=== PATIENT | female | born 1990 | race Caucasian/White ===

== ENCOUNTER 2017-04-12 15:30 | Inpatient (IN) | payer OTHER ==
[2017-04-12 16:29] LABS: Hematocrit 42 % (35-47); Hemoglobin 14.2 g/dl (12.0-16.0); Mean Corpuscular HGB Conc 34 g/dl (31-36); Mean Corpuscular Hemoglobin 30 pg (27-31); Mean Corpuscular Volume 89 fL (80-97); Mean Platelet Volume 10 um3 (7.4-10.4); Red Blood Count 4.72 10^6/ul (4.0-5.4); Red Cell Distribution Width 13 % (10.5-15); White Blood Count 9.8 10^3/ul (3.5-10.8)
[2017-04-12 16:39] LABS: Urine Bacteria Absent (Absent); Urine Bilirubin Negative (Negative); Urine Glucose Negative (Negative); Urine Nitrite Negative (Negative)
[2017-04-12 16:50] LABS: ALT 10 U/L (7-52); AST 15 U/L (13-39); Albumin 4.3 g/dL (3.2-5.2); Alkaline Phosphatase 51 U/L (34-104); Anion Gap 11 mmol/L (2-11); BUN/Creatinine Ratio 17.9 (8-20); Blood Urea Nitrogen 12 mg/dL (6-24); CO2 Carbon Dioxide 23 mmol/L (22-32); Calcium 9.2 mg/dL (8.6-10.3); Chloride 103 mmol/L (101-111); EGFR African American 137.9 (>60); EGFR Non-African American 107.2 (>60); Globulin 3.2 g/dL (2-4); Glucose 86 mg/dL (70-100); Potassium 3.8 mmol/L (3.5-5.0); Sodium 137 mmol/L (133-145); Total Protein 7.5 g/dL (6.4-8.9)
[2017-04-12 16:59] LABS: Benzodiazepine Urine Screen None Detected (None Detect)
[2017-04-12 17:10] LABS: Acetaminophen < 15 mcg/mL; Alcohol < 10 mg/dL (<10); Salicylate < 2.50 mg/dL (<30)
[2017-04-12 17:20] LABS: TSH (Thyroid Stimulating Horm) 3.84 mcIU/mL (0.34-5.60)
[2017-04-12] MEDS ORDERED: Acetaminophen TAB* 325 MG PO ONE (19:19)
[2017-04-12] MEDS ORDERED: Nicotine Inhaler* 10 MG AMP INH PRN (22:58)
[2017-04-12] MEDS ORDERED: Acetaminophen TAB* 325 MG PO PRN (23:00)
[2017-04-13] MEDS: FERROUS FUMARATE PO SCH ×2 (00:21→21:27)
[2017-04-13] MEDS: NORETHINDRONE ACETATE PO SCH ×2 (00:21→21:27)
[2017-04-13] MEDS: ETHINYL ESTRADIOL PO SCH ×2 (00:21→21:27)
[2017-04-13] MEDS: Mometasone 220 MCG MDI INH SCH ×2 (00:23→21:27)
[2017-04-13] MEDS: busPIRone TAB* 5 MG PO SCH (08:37)
[2017-04-13] MEDS: Citalopram TAB* 40 MG PO SCH (08:37)
[2017-04-13] MEDS ORDERED: Albuterol HFA INHALER* 8 gm MDI INH PRN (09:15)
[2017-04-13] MEDS: CEVIMELINE 30 MG PO SCH (12:51)
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
[2017-04-13] MEDS: PTO: LevoCETirizine TAB (NF) 5 MG TAB PO SCH (21:27)
[2017-04-14] MEDS: Citalopram TAB* 40 MG PO SCH (08:28)
[2017-04-14] MEDS: busPIRone TAB* 5 MG PO SCH (08:29)
[2017-04-14] MEDS: CEVIMELINE 30 MG PO SCH (08:29)
--- NOTE | 2017-04-14 08:53 | PN ---
Subjective - Subjective Service Type: 56003 Hosp care 15 min low complexity Subjective: Claudio reports some immediate relief by removing herself from her stressors. She notes milder anxiety and emotional pain. She is having a good unit experience, with support from/to peers and interest in clinical programming. We discussed her MMPI result and profile. Borderline Personality features resonated strongly with her and she appreciated having a better way of understanding her struggles, symptoms, ups and downs, and prognosis. She was encouraged by it, eager to engage in DBT work here and ongoing self care and therapy. Objective - Appearance Appearance: Thin Framed Hygiene: Normal Grooming: Well Kept - Behavior Psychomotor Activities: Normal - Attitude and Relatedness Attitude and Relatedness: Cooperative Eye Contact: Good - Speech Quality: Unpressured Latencies: Normal Quantity: Appropriate - Mood Patient's Decription of Mood: "Okay" - Affect Observed Affect: Non-labile Affect Consistent with: Dysphoria - mild - Thought Process Patient's Thought Process: Coherent Thought Content: No Passive Wish, No Suicidal Planning, No Homicidal Ideation, No Paranoid Ideation - Sensorium Experiencing Hallucinations: No, Sensorium is Clear - Level of Consciousness Level of Consciousness: Alert - Impulse Control Impulse Control: Intact - Insight and Judgement Insight and Judgement: Good Assessment - Assessment Merits Inpatient Hospitalization: For Stabilization, To Initiate Treatment, For Ongoing Evaluation, Consolidate Improvements, For Discharge Planning Inpatient DSM-IV Dx: 1. Depressive disorder, not otherwise specified. 2. Anxiety disorder, not otherwise specified. 3. Rule out posttraumatic stress disorder. 4. Rule out borderline traits or personality disorder. Clinical Impression: 26-year-old female with a history of chronic depressive symptoms, recent suicide attempt, and periodic self- injury, along with anxiety and outpatient psychiatric care. She was admitted due to concern over a recent suicidal behavior and unmanageable, impairing depressive symptoms. This was in the context of highly conflicted relationship with her intermittent partner. Stabilizing here. Claudio is safe on checks, adherent with routines, engaged clinically, and free of self harm behavior or active suicidal thoughts. Clinically she is having some spontaneous improvements, with milder mood and anxiety symptoms, improved coping, reduced distress. Evaluation includes psychological testing psychological testing with the MMPI ( See Dr. Teixeira's note for details). Claudio provided a high distress profile on the test, elevating most clinical scales. This over-endorsement style is considered a "cry for help" protocol and supports consideration of Borderline p.d. traits. The testing correlated well clinically with Claudio's broad endorsement of mood, anxiety and somatic symptoms, and in the context of her previous self harm behavior and relationship pattern, it does suggest she is in a crisis mediated by Borderline Personality traits. Medication management: we will continue the outpatient medication regimen, and rely on program's psychotherapeutic support. Discussed providing DBT content through the weekend with pt's 1:1 staff ( GIULIANA Elder). Plan - Plan Treatment Plan: Name: CLAUDIO ZURITA Birthdate: 1990 [id number] Continued Medication Management: Continue Outpt Medication Medications: Current Medications Acetaminophen (Tylenol Tab*) 650 mg PO Q4H PRN PRN Reason: PAIN Albuterol (Ventolin Hfa Inhaler*) 2 puff INH Q4H PRN PRN Reason: SOB/WHEEZING Buspirone HCl (Buspar Tab*) 7.5 mg PO DAILY [facility] Last Admin: 04/14/17 08:29 Dose: 7.5 mg Cevimeline HCl (Evoxac(Nf)) 30 mg PO DAILY [facility] Last Admin: 04/14/17 08:29 Dose: 30 mg Citalopram Hydrobromide (Celexa Tab*) 40 mg PO DAILY [facility] Last Admin: 04/14/17 08:28 Dose: 40 mg Levocetirizine (Xyzal Tab (Nf)) 5 mg PO BEDTIME [facility] Last Admin: 04/13/17 21:27 Dose: 5 mg Mometasone Furoate (Asmanex 220 Mcg Mdi *) 1 puff INH BEDTIME [facility] Last Admin: 04/13/17 21:27 Dose: 1 puff Nicotine (Nicotine Inhaler*) 10 mg INH Q2H PRN PRN Reason: CRAVING Norethin Acet & Estrad-Fe [ Microgestin 24 Fe 1- 20 Mg-Mcg] 1 tab PO BEDTIME [facility] Last Admin: 04/13/17 21:27 Dose: 1 tab - Discharge Plan Discharge Plan: Outpatient Follow Up Outpatient Program: Counseling/Psych Services at [place]
[2017-04-14] MEDS: Mometasone 220 MCG MDI INH SCH (21:36)
[2017-04-14] MEDS: Fluticasone NASAL SPRAY 50MCG* 16 gm SPRAY BTL BOTH NARES PRN (21:36)
[2017-04-14] MEDS: PTO: LevoCETirizine TAB (NF) 5 MG TAB PO SCH (21:37)
[2017-04-14] MEDS: FERROUS FUMARATE PO SCH (21:38)
[2017-04-14] MEDS: ETHINYL ESTRADIOL PO SCH (21:38)
[2017-04-14] MEDS: NORETHINDRONE ACETATE PO SCH (21:38)
[2017-04-15] MEDS: busPIRone TAB* 5 MG PO SCH (08:48)
[2017-04-15] MEDS: CEVIMELINE 30 MG PO SCH (08:48)
[2017-04-15] MEDS: Citalopram TAB* 40 MG PO SCH (08:50)
--- NOTE | 2017-04-15 15:26 | PN ---
Subjective - Subjective Service Type: 71887 Hosp care 15 min low complexity Subjective: I had the opportunity to meet Ms. Zurita today and discussed the circumstances that led up to her hospitalization. Focus on negative cognitions and use of thought stopping/substitution when she is triggered by negative emotions related to places she had been with her ex-boyfriend. Objective - Appearance Appearance: Well Developed/Nourished Dysmorphic Features: No Hygiene: Normal Grooming: Well Kept - Behavior Psychomotor Activities: Normal Exhibits Abnormal Movement: No - Attitude and Relatedness Attitude and Relatedness: Cooperative Eye Contact: Good - Speech Quality: Unpressured Latencies: Normal Quantity: Appropriate - Mood Patient's Decription of Mood: "Okay" - Affect Observed Affect: Non-labile Affect Consistent with: Dysphoria - Thought Process Patient's Thought Process: Coherent Thought Content: No Passive Wish, No Suicidal Planning, No Homicidal Ideation, No Paranoid Ideation - Level of Consciousness Level of Consciousness: Alert Orientation: Yes Intact - Impulse Control Impulse Control: Intact - Insight and Judgement Insight and Judgement: Good - Group Participation Particating in Group Activities: Yes Assessment - Assessment Inpatient DSM-IV Dx: 1. Depressive disorder, not otherwise specified. 2. Anxiety disorder, not otherwise specified. 3. Rule out posttraumatic stress disorder. 4. Rule out borderline traits or personality disorder. Plan - Plan Treatment Plan: Name: CLAUDIO ZURITA Birthdate: 1990 [id number] Medications: Current Medications Acetaminophen (Tylenol Tab*) 650 mg PO Q4H PRN PRN Reason: PAIN Albuterol (Ventolin Hfa Inhaler*) 2 puff INH Q4H PRN PRN Reason: SOB/WHEEZING Buspirone HCl (Buspar Tab*) 7.5 mg PO DAILY [facility] Last Admin: 04/15/17 08:48 Dose: 7.5 mg Cevimeline HCl (Evoxac(Nf)) 30 mg PO DAILY [facility] Last Admin: 04/15/17 08:48 Dose: 30 mg Citalopram Hydrobromide (Celexa Tab*) 40 mg PO DAILY [facility] Last Admin: 04/15/17 08:50 Dose: 40 mg Fluticasone Propionate (Flonase Nasal [place] 50mcg*) 2 spray BOTH NARES DAILY PRN PRN Reason: CONGESTION Last Admin: 04/14/17 21:36 Dose: 2 spray Levocetirizine (Xyzal Tab (Nf)) 5 mg PO BEDTIME [facility] Last Admin: 04/14/17 21:37 Dose: 5 mg Mometasone Furoate (Asmanex 220 Mcg Mdi *) 1 puff INH BEDTIME [facility] Last Admin: 04/14/17 21:36 Dose: 1 puff Nicotine (Nicotine Inhaler*) 10 mg INH Q2H PRN PRN Reason: CRAVING Norethin Acet & Estrad-Fe [ Microgestin 24 Fe 1- 20 Mg-Mcg] 1 tab PO BEDTIME [facility] Last Admin: 04/14/17 21:38 Dose: 1 tab
[2017-04-15] MEDS: PTO: LevoCETirizine TAB (NF) 5 MG TAB PO SCH (20:54)
[2017-04-15] MEDS: Mometasone 220 MCG MDI INH SCH (20:54)
[2017-04-15] MEDS: Fluticasone NASAL SPRAY 50MCG* 16 gm SPRAY BTL BOTH NARES PRN (20:54)
[2017-04-15] MEDS: ETHINYL ESTRADIOL PO SCH (20:55)
[2017-04-15] MEDS: FERROUS FUMARATE PO SCH (20:55)
[2017-04-15] MEDS: NORETHINDRONE ACETATE PO SCH (20:55)
[2017-04-16] MEDS: busPIRone TAB* 5 MG PO SCH (08:40)
[2017-04-16] MEDS: CEVIMELINE 30 MG PO SCH (08:40)
[2017-04-16] MEDS: Citalopram TAB* 40 MG PO SCH (08:40)
--- NOTE | 2017-04-16 15:10 | CONSULT ---
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 While on the [facility], she has become increasingly more tachycardic. eDstini endorses c/o chest pain, especially with deep breathing, increased shortness of breath, and palpitations. She reports a previous history of tachycardia and states she had "a big evaluation." She reports that they took her off all of her medications then reintroduced them, and her tachycardia improved. It was felt that her asthma medications were the likely contributor. She was placed on a Flovent inhaler, which she has done well with. She reports her asthma is generally well-controlled with this inhaler, and she hasn't had heart rate issues. She was given Asmanex here (as a therapeutic substitution) and she feels more short of breath and felt more wheezy and chest pain. She reports that she most notices her asthma when she is eating and chewing and that it has been worse here since starting the Asmanex. She reports that she is generally pretty active in the outpatient setting. She is sexually active. She has been on the same OCP for 6 years. She has a hx of Sjogrens but denies pulmonary involvement (cites salivary gland involvement and takes cevimeline). 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 Past Medical History: Findings - Sjogren's syndrome, depression, asthma, allergies, Celiac disease Review of Systems - Review of Systems Constitutional Symptoms: Negative: Weight Gain, Weight Loss, Weakness, Fever Thyroid: Negative: Cold Intolerance, Heat Intolerance, Tremor Pulmonary: Positive: Wheezing, Shortness of Breath, Asthma Negative: Cough, Sputum Cardiology: Positive: Chest Pain, Shortness of Breath, Palpitations Negative: Swelling of Ankles, Faintness, Syncope Gastroenterology: Negative: Abdominal Pain, Nausea, Vomiting, Heartburn, Diarrhea Genital - Urinary: Positive: Normal Genitourinay - Female: Positive: Menses Normal Psychiatry: Positive: Depression, Anxiety Objective Active Medications: Acetaminophen (Tylenol Tab*) 650 mg PO Q4H PRN PRN Reason: PAIN Albuterol (Ventolin Hfa Inhaler*) 2 puff INH Q4H PRN PRN Reason: SOB/WHEEZING Buspirone HCl (Buspar Tab*) 7.5 mg PO DAILY [facility] Last Admin: 04/16/17 08:40 Dose: 7.5 mg Cevimeline HCl (Evoxac(Nf)) 30 mg PO DAILY [facility] Last Admin: 04/16/17 08:40 Dose: 30 mg Citalopram Hydrobromide (Celexa Tab*) 40 mg PO DAILY [facility] Last Admin: 04/16/17 08:40 Dose: 40 mg Fluticasone Propionate (Flonase Nasal [place] 50mcg*) 2 spray BOTH NARES DAILY PRN PRN Reason: CONGESTION Last Admin: 04/15/17 20:54 Dose: 2 spray Fluticasone Propionate (Flovent Hfa 110 Mcg(Nf)) 1 puff INH BID [facility] Levocetirizine (Xyzal Tab (Nf)) 5 mg PO BEDTIME [facility] Last Admin: 04/15/17 20:54 Dose: 5 mg Nicotine (Nicotine Inhaler*) 10 mg INH Q2H PRN PRN Reason: CRAVING Norethin Acet & Estrad-Fe [ Microgestin 24 Fe 1- 20 Mg-Mcg] 1 tab PO BEDTIME [facility] Last Admin: 04/15/17 20:55 Dose: 1 tab Vital Signs 04/16/17 04/16/17 07:47 10:06 Temperature 98.3 F Pulse Rate 116 Respiratory 20 16 Rate Blood Pressure 109/66 (mmHg) O2 Sat by Pulse 99 Oximetry Oxygen Devices in Use Now: None Appearance: Young, well appearing, well nourished, pleasant female, sitting in chair, NAD Eyes: PERRLA Ears/Nose/Mouth/Throat: Mucous Membranes Moist Neck: NL Appearance and Movements; NL JVP Respiratory: Symmetrical Chest Expansion and Respiratory Effort, Clear to Auscultation - No wheezing noted, - - No accessory muscle use Cardiovascular: NL Sounds; No Murmurs; No JVD, RRR - apical pulse 102 Abdominal: NL Sounds; No Tenderness; No Distention Extremities: No Edema Neurological: Alert and Oriented x 3, NL Gait, NL Muscle Strength and Tone Result Diagrams: 04/12/17 16:15 04/12/17 16:15 Assessment/Plan - Billing 26 yo female with a PMH significant for Sjogren's syndrome, asthma, Celiac disease, and allergies with concern for tachycardia and SOB by report Plan By Medical Problem: 1. Tachycardia - differential diagnosis includes medication reaction, PE, infection, dehydration, and anxiety. Patient seems like a reliable historian and reports that she has had the best results with Flovent inhaler, which is in her secured belongings. Recommend having pharmacy check this inhaler and switching from Asmanex to patient's home Flovent. She reports consistent use of OCP over 6 years, which does increase her risk for PE. Though her symptoms could be explained by asthma, it would be prudent to check a D-dimer to rule out the possibility of PE, given her reports of SOB and pleuritic chest pain. Will also re-check a CBC and basic labs. EKG ordered. Patient reports good PO intake, does not appear to be dry, and she denies any s/s of infection or cold/ flu concerns. If D-dimer is elevated, will obtain CTA chest. TSH normal on admission labs. 2. Asthma - Allow patient to use home Flovent inhaler, pending approval from pharmacy. Will order prn Xopenex for breakthrough asthma exacerbation. 3. Sjogren's syndrome - Continue Cevimeline. 4. Seasonal allergies - Continue levocetrizine and prn Flonase. 5. Celiac disease - continue gluten free diet 6. Depression - per psychiatry Diet: Gluten free Code Status: Full code Thank you for this consultation. We will follow- up on results. Please contact us for any further concerns. Counseling and/or Coordination of Care Minutes: 45
[2017-04-16] MEDS ORDERED: Levalbuterol HFA INHALER* 1 PUFF MDI INH PRN (15:42)
[2017-04-16 18:55] LABS: Hematocrit 39 % (35-47); Hemoglobin 13.1 g/dl (12.0-16.0); Mean Corpuscular HGB Conc 34 g/dl (31-36); Mean Corpuscular Hemoglobin 30 pg (27-31); Mean Corpuscular Volume 89 fL (80-97); Mean Platelet Volume 10 um3 (7.4-10.4); Red Blood Count 4.36 10^6/ul (4.0-5.4); Red Cell Distribution Width 13 % (10.5-15); White Blood Count 6.7 10^3/ul (3.5-10.8)
[2017-04-16 19:11] LABS: BUN/Creatinine Ratio 14.6 (8-20); Calcium 9.1 mg/dL (8.6-10.3); EGFR African American 91.1 (>60); EGFR Non-African American 70.8 (>60)
[2017-04-16] MEDS ORDERED: PTO:Fluticasone HFA 110 mcg(NF) MDI INH SCH (21:00)
[2017-04-16] MEDS: ETHINYL ESTRADIOL PO SCH (21:24)
[2017-04-16] MEDS: NORETHINDRONE ACETATE PO SCH (21:24)
[2017-04-16] MEDS: FERROUS FUMARATE PO SCH (21:24)
[2017-04-16] MEDS: PTO: LevoCETirizine TAB (NF) 5 MG TAB PO SCH (21:25)
[2017-04-16] MEDS: PTO:Fluticasone HFA 110 mcg(NF) MDI INH SCH (21:25)
[2017-04-16] MEDS: Fluticasone NASAL SPRAY 50MCG* 16 gm SPRAY BTL BOTH NARES PRN (21:26)
[2017-04-17] MEDS: busPIRone TAB* 5 MG PO SCH (09:27)
[2017-04-17] MEDS: Citalopram TAB* 40 MG PO SCH (09:27)
[2017-04-17] MEDS: CEVIMELINE 30 MG PO SCH (09:28)
[2017-04-17] MEDS: PTO:Fluticasone HFA 110 mcg(NF) MDI INH SCH ×2 (09:29→21:00)
[2017-04-17] MEDS ORDERED: Famotidine TAB* 20 MG PO ONE (12:30)
[2017-04-17] MEDS ORDERED: Famotidine TAB* 20 MG ONE (12:54)
--- NOTE | 2017-04-17 15:13 | PN ---
Subjective - Subjective Service Type: 94699 Hosp care 15 min low complexity Subjective: Claudio asked to communicate with work using her cell phone: order put in for that. Reports otherwise doing well here, would like to discharge tomorrow. Ate gluten today, took pepcid and managing abdominal pain behaviorally. Objective - Appearance Appearance: Well Developed/Nourished Dysmorphic Features: No Hygiene: Normal Grooming: Well Kept - Behavior Psychomotor Activities: Normal Exhibits Abnormal Movement: No - Attitude and Relatedness Attitude and Relatedness: Cooperative Eye Contact: Good - Speech Quality: Unpressured Latencies: Normal Quantity: Appropriate - Mood Patient's Decription of Mood: "Fine" - Affect Observed Affect: Fair Affect Consistent with: Euthymia - Thought Process Patient's Thought Process: Coherent, Goal Directed Thought Content: No Passive Wish, No Suicidal Planning, No Homicidal Ideation, No Paranoid Ideation - Sensorium Experiencing Hallucinations: No, Sensorium is Clear Type of Hallucinations: Visual: No, Auditory: No, Command: No - Level of Consciousness Level of Consciousness: Alert Orientation: Yes Intact, Yes Orientated to Time, Yes Orientated to Place, Yes Orientated to Person - Impulse Control Impulse Control: Intact - Insight and Judgement Insight and Judgement: Fair - Group Participation Particating in Group Activities: Yes - Medication Management Medication Management Adherence: Yes Assessment - Assessment Merits Inpatient Hospitalization: Consolidate Improvements, For Discharge Planning Inpatient DSM-IV Dx: 1. Depressive disorder, not otherwise specified. 2. Anxiety disorder, not otherwise specified. 3. Rule out posttraumatic stress disorder. 4. Rule out borderline traits or personality disorder. Clinical Impression: Claudio is a 26-year-old female with a history of chronic depressive symptoms, recent suicide attempt, and periodic self- injury, along with anxiety and outpatient psychiatric care. Stabilizing here. Eval and MMPI suggest she is in a crisis mediated by Borderline Personality traits. She agrees and appreciated the feedback. Continuing the outpatient medication regimen. Engaged in [facility] program's psychotherapeutic support, with DBT work over weekend. [id number] Reports feeling safe and ready for discharge tomorrow. Coping with pain from gluten consumption. Plan - Plan Treatment Plan: Name: CLAUDIO ZURITA Birthdate: 1990 [id number] Continue current plan, with likely Monday discharge. Medications: Current Medications Acetaminophen (Tylenol Tab*) 650 mg PO Q4H PRN PRN Reason: PAIN Albuterol (Ventolin Hfa Inhaler*) 2 puff INH Q4H PRN PRN Reason: SOB/WHEEZING Buspirone HCl (Buspar Tab*) 7.5 mg PO DAILY [facility] Last Admin: 04/17/17 09:27 Dose: 7.5 mg Cevimeline HCl (Evoxac(Nf)) 30 mg PO DAILY [facility] Last Admin: 04/17/17 09:28 Dose: 30 mg Citalopram Hydrobromide (Celexa Tab*) 40 mg PO DAILY [facility] Last Admin: 04/17/17 09:27 Dose: 40 mg Fluticasone Propionate (Flonase Nasal [place] 50mcg*) 2 spray BOTH NARES DAILY PRN PRN Reason: CONGESTION Last Admin: 04/16/17 21:26 Dose: 2 spray Fluticasone Propionate (Flovent Hfa 110 Mcg(Nf)) 2 puff INH BID [facility] Last Admin: 04/17/17 09:29 Dose: 2 puff Levalbuterol HCl (Xopenex Hfa Inhaler*) 2 puff INH Q4H PRN PRN Reason: SHORTNESS OF BREATH Levocetirizine (Xyzal Tab (Nf)) 5 mg PO BEDTIME [facility] Last Admin: 04/16/17 21:25 Dose: 5 mg Nicotine (Nicotine Inhaler*) 10 mg INH Q2H PRN PRN Reason: CRAVING Norethin Acet & Estrad-Fe [ Microgestin 24 Fe 1- 20 Mg-Mcg] 1 tab PO BEDTIME [facility] Last Admin: 04/16/17 21:24 Dose: 1 tab - Discharge Plan Discharge Plan: Outpatient Follow Up
--- NOTE | 2017-04-17 16:14 | PN ---
Subjective Date of Service: 04/17/17 Interval History: This is a 26 yo female with asthma who is a current patient of the behavioral health unit. Hospitalist group was asked to evaluate for tachycardia and c/o SOB. Patient had reported a similar phenomenon when using an alternative to her Flovent inhaler in the past. Ddimer, CBC, CMP and EKG have been completed. Patient has resumed her usual home Flovent. Patient reports that she feels better today, SOB has resolved, no palpitations or CP. She does report that she inadvertently ate something that contains gluten and she has celiac disease, so she is experiencing GI discomfort this afternoon. Objective Active Medications: Acetaminophen (Tylenol Tab*) 650 mg PO Q4H PRN PRN Reason: PAIN Albuterol (Ventolin Hfa Inhaler*) 2 puff INH Q4H PRN PRN Reason: SOB/WHEEZING Buspirone HCl (Buspar Tab*) 7.5 mg PO DAILY [facility] Last Admin: 04/17/17 09:27 Dose: 7.5 mg Cevimeline HCl (Evoxac(Nf)) 30 mg PO DAILY [facility] Last Admin: 04/17/17 09:28 Dose: 30 mg Citalopram Hydrobromide (Celexa Tab*) 40 mg PO DAILY [facility] Last Admin: 04/17/17 09:27 Dose: 40 mg Fluticasone Propionate (Flonase Nasal [place] 50mcg*) 2 spray BOTH NARES DAILY PRN PRN Reason: CONGESTION Last Admin: 04/16/17 21:26 Dose: 2 spray Fluticasone Propionate (Flovent Hfa 110 Mcg(Nf)) 2 puff INH BID [facility] Last Admin: 04/17/17 09:29 Dose: 2 puff Levalbuterol HCl (Xopenex Hfa Inhaler*) 2 puff INH Q4H PRN PRN Reason: SHORTNESS OF BREATH Levocetirizine (Xyzal Tab (Nf)) 5 mg PO BEDTIME [facility] Last Admin: 04/16/17 21:25 Dose: 5 mg Nicotine (Nicotine Inhaler*) 10 mg INH Q2H PRN PRN Reason: CRAVING Norethin Acet & Estrad-Fe [ Microgestin 24 Fe 1- 20 Mg-Mcg] 1 tab PO BEDTIME [facility] Last Admin: 04/16/17 21:24 Dose: 1 tab Vital Signs 04/17/17 04/17/17 07:40 11:12 Temperature 98.1 F Pulse Rate 101 Respiratory 16 16 Rate Blood Pressure 101/64 (mmHg) O2 Sat by Pulse 98 Oximetry Oxygen Devices in Use Now: None Appearance: Well appearing young female in NAD Respiratory: Symmetrical Chest Expansion and Respiratory Effort, Clear to Auscultation Cardiovascular: NL Sounds; No Murmurs; No JVD, RRR Result Diagrams: 04/16/17 18:47 04/16/17 18:47 Additional Lab and Data: Laboratory Tests 04/16/17 04/16/17 18:47 18:47 D-Dimer, Quantitative 224 Troponin I 0.00 Diagnostic Imaging: EKG - NSR Assess/Plan/Problems-Billing 26 yo female with a PMH significant for Sjogren's syndrome, asthma, Celiac disease, and allergies with concern for tachycardia and SOB by report - Patient Problems (1) Tachycardia Comment: Improving Essentially normal workup Appears to have been benign, possibly medication related or anxiety induced (2) Depression Comment: Management per psychiatry (3) Asthma Comment: No acute exacerbation Cont Flovent (4) Sjogren's disease Comment: Cont cevimeline (5) Celiac disease Comment: Maintain gluten free diet Status and Disposition: Patient appears to have improved. No additional recommendations or follow up required. Hospitalists will sign off at this time, but happy to re-evaluate if necessary.
[2017-04-17] MEDS: PTO: LevoCETirizine TAB (NF) 5 MG TAB PO SCH (20:59)
[2017-04-17] MEDS: FERROUS FUMARATE PO SCH (20:59)
[2017-04-17] MEDS: ETHINYL ESTRADIOL PO SCH (20:59)
[2017-04-17] MEDS: NORETHINDRONE ACETATE PO SCH (20:59)
[2017-04-17] MEDS: Fluticasone NASAL SPRAY 50MCG* 16 gm SPRAY BTL BOTH NARES PRN (21:00)
[2017-04-18 07:59] VITALS: BP 98/67
[2017-04-18] MEDS: busPIRone TAB* 5 MG PO SCH (09:46)
[2017-04-18] MEDS: CEVIMELINE 30 MG PO SCH (09:47)
[2017-04-18] MEDS: Citalopram TAB* 40 MG PO SCH (09:47)
[2017-04-18] MEDS: Fluticasone NASAL SPRAY 50MCG* 16 gm SPRAY BTL BOTH NARES PRN (09:48)
[2017-04-18] MEDS: PTO:Fluticasone HFA 110 mcg(NF) MDI INH SCH (09:50)
--- NOTE | 2017-04-18 11:08 | DS ---
Subjective - Subjective Service Types: [id number] [facility]osp [facility] Day [facility]mt simple under 30 min Discharge Date: 04/18/17 Subjective: Destini reported readiness for discharge, and a very good hospital experience. She notes low stress levels now, intact coping, absence of emotional pain or wishes, and manageable anxiety. We reviewed her course, evaluation, medication, and aftercare planning. She affirmed she sees no barriers to routine support, clinical followup, or emergency help if needed again. Objective - Appearance Appearance: Healthy Appearing Hygiene: Normal Grooming: Well Kept - Behavior Psychomotor Activities: Normal - Attitude and Relatedness Attitude and Relatedness: Cooperative Eye Contact: Good - Speech Quality: Unpressured Latencies: Normal Quantity: Appropriate - Mood Patient's Decription of Mood: "Good" - Affect Observed Affect: Non-labile Affect Consistent with: Euthymia - Thought Process Patient's Thought Process: Coherent, Goal Directed Thought Content: No Passive Wish, No Suicidal Planning, No Homicidal Ideation, No Paranoid Ideation - Sensorium Experiencing Hallucinations: No, Sensorium is Clear - Level of Consciousness Level of Consciousness: Alert - Impulse Control Impulse Control: Intact - Insight and Judgement Insight and Judgement: Good Treatment Course & Assessment Clinical Course & Impression: 26-year-old female with a history of chronic depressive symptoms, recent suicide attempt, and periodic self- injury, along with anxiety and outpatient psychiatric care. She was admitted due to concern over a recent suicidal behavior and unmanageable, impairing depressive symptoms. This was in the context of highly conflicted relationship with her intermittent partner. 04/18/17 Clear for release. Destini stabilized here and had substantial clinical improvements. She was safe on checks, adherent with routines, engaged clinically, and free of self harm behavior or active suicidal thoughts. Clinically she made steady and spontaneous improvements, with milder mood and anxiety symptoms, improved coping, reduced distress. Evaluation includes psychological testing with the MMPI (See Dr. Teixeira's note for details). Destini provided a high distress profile on the test, elevating most clinical scales. This over-endorsement style is considered a "cry for help " protocol and supports consideration of Borderline p.d. traits. The testing correlated well clinically with Destini's broad endorsement of mood, anxiety and somatic symptoms at initial presentation, and in the context of her previous self harm behavior and relationship pattern, it does suggest she is in a crisis mediated by Borderline Personality traits. Destini was seen by hospitalist internet consultant for evaluation of tachycardia - deemed to be benign (either asthma medication effect or anxiety related). Medication management: we continued the outpatient medication regimen, and rely on program's psychotherapeutic support. Destini was receptive to diagnostic feedback and heard with interest information about DBT treatment, prognosis, and aftercare considerations. Destini is no longer impaired by symptoms and is appropriate for release. Risk concern centers on suicide risk. In Destini's case, it is chronically elevated based on her condition an history. Her profile also dictates that her acute risk could fluctuate based on a tendency for coping breakdown under situational stress. At this time, acute risk is assessed as low on basis of Destini's low symptom burden, absence of impairment, and benign behavior/ideation. Clear for Discharge: Adequate Clinical Respons, Acceptable Safety Profile, Low Utility of In Care Inpatient DSM-IV Dx: 1. Depressive disorder, not otherwise specified. 2. Anxiety disorder, not otherwise specified. 3. Rule out posttraumatic stress disorder. 4. Rule out borderline traits or personality disorder. Discharge Planning - Discharge Planning Discharge Plan: Outpatient Follow Up Outpatient Program: [facility] at [place] Recommendations for Continuing Care: Medication Management, Psychotherapy Medications: Current Medications Albuterol (Ventolin Hfa Inhaler*) 2 puff INH Q4H PRN PRN Reason: SOB/WHEEZING Buspirone HCl (Buspar Tab*) 7.5 mg PO DAILY [facility] Last Admin: 04/18/17 09:46 Dose: 7.5 mg Cevimeline HCl (Evoxac(Nf)) 30 mg PO DAILY [facility] Last Admin: 04/18/17 09:47 Dose: 30 mg Citalopram Hydrobromide (Celexa Tab*) 40 mg PO DAILY [facility] Last Admin: 04/18/17 09:47 Dose: 40 mg Fluticasone Propionate (Flonase Nasal [place] 50mcg*) 2 spray BOTH NARES DAILY PRN PRN Reason: CONGESTION Last Admin: 04/18/17 09:48 Dose: 2 spray Fluticasone Propionate (Flovent Hfa 110 Mcg(Nf)) 2 puff INH BID [facility] Last Admin: 04/18/17 09:50 Dose: 2 puff Levalbuterol HCl (Xopenex Hfa Inhaler*) 2 puff INH Q4H PRN PRN Reason: SHORTNESS OF BREATH Levocetirizine (Xyzal Tab (Nf)) 5 mg PO BEDTIME [facility] Last Admin: 04/17/17 20:59 Dose: 5 mg Norethin Acet & Estrad-Fe [ Microgestin 24 Fe 1- 20 Mg-Mcg] 1 tab PO BEDTIME [facility] Last Admin: 04/17/17 20:59 Dose: 1 tab Discharge Planning: Prescriptions provided for discharge [] Yes [x] No Follow up care details as per social work arrangements. Patient response to discharge plan: [x] eager for discharge [] agreeable with discharge plan [] ambivalent about discharge [] disagrees with discharge today
--- NOTE | 2017-04-19 13:20 | CONS ---
PSYCHOLOGICAL REPORT: DATE OF CONSULT: 04/18/17 REASON FOR REFERRAL: Destini was referred for personality testing in order to assist with diagnostic impression with concerns regarding lethality as well as characterological vulnerabilities consistent with perhaps borderline personality traits. TEST ADMINISTERED: Destini completed the [place] Multiphasic Personality Inventory - 2 (MMPI-2). She was given feedback in individual consultation on the day of her discharge. 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 She describes recently completing her Masters degree and moving into the PhD candidate status. She describes good overall adjustment to [place], expressing gratitude about being afforded a stipend, which affords her a reasonable quality of life while here in [place], and impresses as very interested and motivated to engage in her field of study. She is anxious to attend conferences this upcoming summer with the most recent occurring in [place]. She describes at some length about her interest in exploring viable environmental options for life on other planets. Destini describes her recent struggles with depression occurring in a reactive context. She has been involved with a lab partner of her's, which apparently has been "off and on" and has created a great deal of emotional disruption for Destini. She describes feeling a sense of guilt for having decided to engage in this affair, describing how he had convinced her that he was going to leave his before they initiate any intimacy. Presently, she impresses as having made a decision to end their relationship and to move on. BEHAVIORAL OBSERVATION: Destini is a very bright energetic 26-year-old who was cooperative with efforts to treat and assess. She attended programming in a productive fashion and engaged in individual conversation in a spontaneous and insightful fashion. She responded positively to discussion addressing borderline personality traits both in a group context as well as in individual conversation, describing how she has experienced fears of emotional abandonment from a very young age. She spontaneously offered an example in group where she felt most comfortable while the family was on vacation in the [facility], describing how she felt secure in that people could not simply just walk away from her and leave her. She extrapolated that her mother experienced depression, which seemed to impair their attachment. More current symptomatology involves recurring depression characterized by suicidal rumination and at times delicate self injury. She also identifies mood swings as problematic for her, which in recent weeks have been exacerbated by her relational difficulties. TEST RESULTS: Destini provides an over endorsement response set, elevating emotional duress scales and subsequently all clinical scales, save the M-F and social introversion scales. This is interpreted as a "cry for help" endorsement style, often consistent with borderline personality traits. IMPRESSIONS AND RECOMMENDATIONS: Destini impresses as improved markedly during her stay, describing her experience here as productive and helpful to her. She seems to appreciate the discussion addressing borderline traits as well as encouragement that with insight only and psychotherapy, her difficulties can successfully be ameliorated. Discussion encouraged continuing followup with outpatient treatment as well as compliance with medications. Ongoing treatment may try to address family of origin issues as she describes a rather invalidating experience with her parents who apparently do not believe in mental health illnesses. Presently, lethality concerns have significantly diminished with improvement in affect and insight regarding how to manage negative symptoms. DIAGNOSTIC IMPRESSION: Supports recurrent depression, NOS, as well as borderline personality disorder on axis II. [id number]/CPS #: [id number] VERENA
== END 2017-04-18 17:30 | disposition home or self-care (01) | DRG 881 ==
LOC: ED 15:30 → BSU 04-13 00:25
PROVIDERS: ADMIT Psychiatry & Neurology Psychiatry; ATTEND Psychiatry & Neurology Psychiatry
DX: F32.9 Major depressive disorder, single episode, unspecified (principal); M35.00 Sjogren syndrome, unspecified; K90.0 Celiac disease; F41.9 Anxiety disorder, unspecified; J45.909 Unspecified asthma, uncomplicated; R00.0 Tachycardia, unspecified; T49.0X5A Adverse effect of local antifungal, anti-infective and anti-inflammatory drugs, initial encounter; Y92.230 Patient room in hospital as the place of occurrence of the external cause; F60.3 Borderline personality disorder; Z79.3 Long term (current) use of hormonal contraceptives; Z79.899 Other long term (current) drug therapy; Z81.8 Family history of other mental and behavioral disorders; Z81.1 Family history of alcohol abuse and dependence
CPT/HCPCS: 36415; 80048; 80053; 80307; 80320; 80329; 81003; 81015; 84443; 84484; 85025; 85379; 87086; 93005; 96102; 99222; 99231; 99238; A9270-GY; G0480